=== PATIENT | female | born 1985 | race Two or more races ===

== ENCOUNTER 2022-01-31 23:50 | Emergency (ER) | payer SELFPAY ==
[~2022-01-31] VITALS: Ht 165.1 cm; Wt 81.6 kg
[2022-02-01 00:18] VITALS: BP 126/69
[2022-02-01 01:05] LABS: Urine Bacteria FEW /hpf (None Seen); Urine Blood 3+ /uL (Negative); Urine Specific Gravity 1.004 (1.001-1.035); Urine WBC 2 /hpf (0 - 5)
[2022-02-01 01:17] LABS: Amphetamine Screen, Urine NEGATIVE (NEGATIVE); Barbiturate Scree,Urine NEGATIVE (NEGATIVE); Benzodiazephine Screen, Urine NEGATIVE (NEGATIVE); Cannabinoid Screen, Urine NEGATIVE (NEGATIVE); Cocaine Screen, Urine NEGATIVE (NEGATIVE); Opiate Scree,Urine NEGATIVE (NEGATIVE); Phencyclidine Screen, Urine NEGATIVE (NEGATIVE)
== END 2022-02-01 02:13 | disposition left against medical advice (07) ==
LOC: ER 23:50
DX: S09.90XA Unspecified injury of head, initial encounter (principal); F10.129 Alcohol abuse with intoxication, unspecified; Y90.7 Blood alcohol level of 200-239 mg/100 ml; Z88.6 Allergy status to analgesic agent; Z53.29 Procedure and treatment not carried out because of patient's decision for other reasons
CPT/HCPCS: 36415; 80307; 80320; 81001; 84702

== ENCOUNTER 2025-05-15 15:59 | Emergency (ER) | payer BC, OTHER ==
[~2025-05-15] VITALS: Ht 149.9 cm; Wt 121.0 kg
[2025-05-15 16:00] VITALS: TEMP 97.9
--- NOTE | 2025-05-15 16:25 | ED.PDOC ---
History of Present Illness HPI Comments 39 y/o severely morbidly obese F, with a history of alcohol abuse, presents with significant other for c/c of nonradiating RUQ abdominal pain and abdominal distension and yellowing sclera for the past 2x months. Patient denies any history of fatty or cirrhotic liver. Denies any nausea, vomiting, diarrhea, or further associated symptoms. Patient was mildly tachycardic at arrival. Chief Complaint: Abdominal Pain Time Seen by MD: 16:15 Primary Care Provider: NONE Reviewed Notes: Nurses Notes, Medications, Allergies Allergies: Coded Allergies: Hydromorphone (Verified Allergy, Unknown, 02/01/22) Information Source: Patient Mode of Arrival: Ambulatory Severity: Moderate Timing: Months Duration: Intermittent Prehospital treatment: None Past Medical History PAST MEDICAL HISTORY: Denies Surgical History: Denies all surgeries STEP FINISHER History: Denies all STEP FINISHER Hx Family History Family History: Reviewed,noncontributory to illness Social History Smoker: Non-Smoker Alcohol: Heavy Drugs: Denies Drug Use Lives In: Home Constitutional: denies: chills, diaphoresis, fatigue, fever, malaise, sweats, weakness, others EENTM: reports: others (eye yellowing); denies: blurred vision, double vision, ear bleeding, ear discharge, ear drainage, ear pain, ear ringing, eye pain, eye redness, hearing loss, mouth pain, mouth swelling, nasal discharge, nose bleeding, nose congestion, nose pain, photophobia, tearing, throat pain, throat swelling, voice changes Respiratory: denies: cough, hemoptysis, orthopnea, SOB at rest, shortness of breath, SOB with excertion, stridor, wheezing, others Cardiovascular: denies: chest pain, dizzy spells, diaphoresis, Dyspnea on exertion, edema, irregular heart beat, left arm pain, lightheadedness, palpitations, PND, syncope, others Gastrointestinal: reports: abdomen distended, abdominal pain; denies: blood streaked bowels, constipated, diarrhea, dysphagia, difficulty swallowing, hematemesis, melena, nausea, poor appetite, poor fluid intake, rectal bleeding, rectal pain, vomiting, others Genitourinary: denies: abnormal vagina bleeding, burning, dyspareunia, dysuria, flank pain, frequency, hematuria, incontinence, pain, , vagina discharge, urgency, others Neurological: denies: dizziness, fainting, headache, left sided numbness, left sided weakness, numbness, paresthesia, pre-existing deficit, right sided numbness, right sided weakness, seizure, speech problems, tingling, tremors, weakness, others Musculoskeletal: denies: back pain, gout, joint pain, joint swelling, muscle pain, muscle stiffness, neck pain, others Integumetry: denies: bruises, change in color, change in hair/nails, dryness, laceration, lesions, lumps, rash, wounds, others Allergic/Immunocompromised: denies: Difficulty Healing, Frequent Infections, Hives, Itching, others Hematologic/Lymphatic: denies: anemia, blood clots, easy bleeding, easy bruising, swollen glands, others Endocrine: denies: excessive hunger, excessive sweating, excessive thirst, excessive urination, flushing, intolerance to cold, intolerance to heat, unexplained weight gain, unexplained weight loss, others Psychiatric: denies: anxiety, bipolar disorder, depression, hopeless, panic disorder, schizophrenia, sleepless, suicidal, others All Other Systems: Reviewed and Negative Physical Exam General Appearance: Moderate Distress ([id number] distress due to right upper quadrant pain concerns.), Normal HEENT: Normal ENT Inspection, Pharynx Normal, TMs Normal Neck: Full Range of Motion, Non-Tender, Normal, Normal Inspection Respiratory: Chest Non-Tender, Lungs Clear, No Accessory Muscle Use, No Respira tory Distress, Normal Breath Sounds Cardiovascular: No Edema, No JVD, No Murmur, No Gallop, Normal Peripheral Pulses, Regular Rate/Rhythm Breast Exam: Deferred Gastrointestinal: Other (Diffuse right upper quadrant tenderness to palpation throughout extending into the epigastric region. Difficult to assess due to bod y habitus. No pulsatile masses. No signs of trauma.) Genitalia: Deferred Pelvic: Deferred Rectal: Deferred Extremities: Normal inspection, Non-tender Neurologic: Alert Cerebellar Function: NOT DONE Reflexes: NOT DONE Skin: Dry, Normal Color, Warm Lymphatic: No Adenopathy Was a procedure done? Was a procedure done?: No Differential Dx Considerations may include: gastritis, gastroenteritis, GERD, fatty liver, liver cirrhosis, cholelithiasis, cholecystitis, UTI, nephrolithiasis, among, others X-Ray, Labs, Meds, VS Vital Signs Date Time Temp Pulse Resp B/P (MAP) Pulse Ox O2 Delivery O2 Flow Rate FiO2 05/15/25 18:03 73 22 97 Room Air* 0 21 05/15/25 18:03 72 22 133/76 (95) 98 05/15/25 16:00 97.9 103 18 138/97 97 97.9 Lab Test 05/15/25 17:26 05/15/25 16:35 05/15/25 16:24 Range/Units Troponin I High Sensitivity Pending < 3 L </=34 ng/L Urine Color Yellow Yellow Urine Clarity Clear Clear Urine pH 6.0 5.0-9.0 Urine Specific [place] 1.029 1.001-1.035 Urine Protein Negative Negative Urine Ketones Trace Negative Urine Blood Negative Negative /uL Urine Nitrite Negative Negative Urine Bilirubin Negative Negative Urine Urobilinogen Normal Negative mg/dL Urine Leukocyte Esterase Negative Negative /uL Urine RBC None seen 0 - 4 /hpf Urine Microscopic WBC < 1 0-5 /HPF Urine Squamous Epithelial Cells Few <5 /hpf Urine Bacteria None seen None Seen /hpf Urine Mucus Few None Seen Urine Glucose Normal Normal mg/dL Urine Test Negative Negative White Blood Count 5.2 4.4-10.8 10^3/uL Red Blood Count 4.55 4.0-5.20 10^6/uL Hemoglobin 11.2 L 12.2-16.2 g/dL Hematocrit 34.5 L 36.0-46.0 % Mean Corpuscular Volume 75.8 L 80.0-100.0 fL Mean Corpuscular Hemoglobin 24.6 L 28.0-32.0 pg Mean Corpuscular Hemoglobin Concent 32.5 32.0-36.0 g/dL Red Cell Distribution Width 18.0 H 11.8-14.3 % Platelet Count 254 140-450 10^3/uL Mean Platelet Volume 8.1 6.9-10.8 fL Neutrophils (%) (Auto) 55.4 37.0-80.0 % Lymphocytes (%) (Auto) 32.8 10.0-50.0 % Monocytes (%) (Auto) 7.3 0.0-12.0 % Eosinophils (%) (Auto) 3.5 0.0-7.0 % Basophils (%) (Auto) 1.0 0.0-2.0 % Neutrophils # (Auto) 2.9 1.6-8.6 10 ^3/uL Lymphocytes # (Auto) 1.7 0.4-5.4 10 ^3/uL Monocytes # (Auto) 0.4 0-1.3 10 ^3/uL Eosinophils # (Auto) 0.2 0-0.8 10 ^3/uL Basophils # (Auto) 0.1 0-0.2 10 ^3/uL Nucleated Red Blood Cells 0.1 % Sodium Level 143 136-145 mmol/L Potassium Level 4.1 3.5-5.1 mmol/L Chloride Level 109 H 98-107 mmol/L Carbon Dioxide Level 25 20-31 mmol/L Anion Gap 9 5-15 Blood Urea Nitrogen 18 9-23 mg/dL Creatinine 0.74 0.550-1.02 mg/dL Glomerular Filtration Rate Calc 105 >90 mL/min BUN/Creatinine Ratio 24.3 H 10.0-20.0 Serum Glucose 114 H 74-106 mg/dL Calcium Level 8.8 8.7-10.4 mg/dL Lipase 42 12-53 U/L X-Ray, Labs, Meds, VS Comment All studies performed in the ED were evaluated by me personally. Serum studies were remarkable for a mildly elevated lipase which is indicative of the patient's drinking history. CT study was remarkable for a hypoattenuation of the liver which appears to be related to hepatic steatosis. Spent time discussing alcohol cessation and lifestyle modification with the patient. Advised follow up with the primary care provider. Time of 1ST Reevaluation: 18:15 Reevaluation 1ST: Improved Consultation: PCP Patient Education/Counseling: Diagnosis, Treatment Family Education/Counseling: Diagnosis, Treatment, No Family Present SEPSIS Sepsis Screen Date sepsis recognized/suspect: May 15, 2025 Time Sepsis recognized/suspect: 1602 Recent Procedure: No On Antibiotic Therapy: No Respiratory Rate >20: No Heart Rate >90: No Temp<36 C (96.8 F) or >38.3 C: No SBP <90 or MAP <65 mmHG: No New Acute Mental Status Change: No Is the patient on CPAP, BIPAP,: No Physician Orders Troponin-I Hs (05/15/25 18:00) Troponin-I Hs (05/16/25 00:00) Troponin-I Hs (05/16/25 03:00) Ct Ab Pel With Iv Con Only (05/15/25 16:14) Heplock Iv (05/15/25 16:14) Electrocardigram (05/15/25 16:14) Troponin-I Hs (05/15/25 19:14) Morphine Sulfate Injection (05/15/25 18:15) Ondansetron Hcl (Zofran) (05/15/25 18:15) Vital Signs Date Time Temp Pulse Resp B/P (MAP) Pulse Ox O2 Delivery O2 Flow Rate FiO2 05/15/25 18:03 73 22 97 Room Air* 0 21 05/15/25 18:03 72 22 133/76 (95) 98 05/15/25 16:00 97.9 103 18 138/97 97 97.9 Laboratory Tests Test 05/15/25 16:24 White Blood Count 5.2 10^3/uL (4.4-10.8) Departure 1 Departure Time of Disposition: 18:15 Impression: Primary Impression: Fatty liver Disposition: HOME / SELF CARE / HOMELESS Condition: Stable Additional Instructions: Advised patient follow up with the primary care provider for discussions related to today's findings. Advised alcohol cessation immediately and additionally, advised patient to not utilize acetaminophen/Tylenol until her liver has returned to a healthy status. Discharged With: Self, Spouse Critical Care Note Critical Care Time?: No Stability Stability form required: No Heart Score Heart Score: Heart Score Response (Comments) Value History N/A 0 EKG N/A 0 Age N/A 0 Risk Factors N/A 0 Troponin N/A 0 Total 0 I personally scribed for STACY BE PAC ([email or web address]) on 05/15/25 at 16:25. Electronically submitted by Morales Ryan ([email or web address]). I personally scribed for STACY BE PAC ([email or web address]) on 05/15/25 at 16:29. Electronically submitted by Morales Ryan ([email or web address]). STACY BE PAC May 15, 2025 16:25
[2025-05-15 16:39] LABS: Hematocrit 34.5 % (36.0-46.0); Hemoglobin 11.2 g/dL (12.2-16.2); Mean Corpuscular Hemoglobin 24.6 pg (28.0-32.0); Mean Corpuscular Volume 75.8 fL (80.0-100.0); Nucleated Red Blood Cells % 0.1 %
[2025-05-15 16:47] LABS: Urine Protein, UAD Negative (Negative)
[2025-05-15 16:48] LABS: Potassium 4.1 mmol/L (3.5-5.1); Sodium 143 mmol/L (136-145)
[2025-05-15 16:49] LABS: Anion Gap 9 (5-15); Calcium 8.8 mg/dL (8.7-10.4); Carbon Dioxide 25 mmol/L (20-31)
[2025-05-15 16:51] LABS: Chloride 109 mmol/L (98-107)
[2025-05-15 16:54] LABS: BUN/Creatinine Ratio 24.3 (10.0-20.0); Blood Urea Nitrogen 18 mg/dL (9-23); Lipase 42 U/L (12-53)
[2025-05-15 16:55] LABS: Glucose 114 mg/dL (74-106)
[2025-05-15] MEDS: IOHEXOL 300 MG/ML 100ML BOTTLE IJ ONE (17:34)
--- NOTE | 2025-05-15 17:55 | DVH ---
EXAM: CT CT AB PEL WITH IV CON ONLY HISTORY: Diffuse epigastric and right quadrant pain TECHNIQUE: Volumetric multidetector CT images of the abdomen and pelvis were obtained after the admin istration of intravenous contrast. All CT scans at this facility use dose modulation, iterative recon struction, and/or weight based dosing when appropriate to reduce radiation dose to as low as reasonab ly achievable. COMPARISON: None FINDINGS: [LOWER CHEST]: Presumed atelectasis in the right lung base. [LIVER]: Question relative hypoattenuation of the liver which may be exaggerated secondary to timing of contrast. Differential also includes hepatitis the versus sequelae of hepatic steatosis. [GALLBLADDER AND BILIARY TREE]: Surgically absent. [SPLEEN]: Unremarkable. [PANCREAS]: Unremarkable. [ADRENAL GLANDS]: Unremarkable [KIDNEYS]: No hydronephrosis. No nephroureterolithiasis. [BLADDER]: Unremarkable for the degree distention. [REPRODUCTIVE ORGANS]: Unremarkable. [BOWEL/MESENTERY]: Postsurgical changes of the stomach. Minimal sigmoid diverticulosis. [ASCITES]: Absent [LYMPHADENOPATHY]: No pathologically enlarged lymph nodes by CT size criteria [VASCULATURE]: No aneurysmal dilatation. [ABDOMINAL WALL]: Unremarkable. [MUSCULOSKELETAL]: No acute fracture or aggressive focal osseous lesion. IMPRESSION: 1. No definitive CT evidence of an acute abdominal/pelvic process. Question relative hypoattenuation of the liver which may be exaggerated secondary to timing of contrast. Differential also includes he patitis the versus sequelae of hepatic steatosis.
[2025-05-15] MEDS ORDERED: MORPHINE SULFATE INJ 2 MG/ml SYRG IM ONE (18:00)
[2025-05-15] MEDS ORDERED: ONDANSETRON ODT 4 MG TAB PO ONE (18:00)
[2025-05-15 18:03] VITALS: PULSE 73; RESP 22; O2SAT 97
[2025-05-15] MEDS: MORPHINE SULFATE INJ 2 MG/ml SYRG IV ONE (18:38)
[2025-05-15] MEDS: ONDANSETRON HCL 4 MG/2 ML VIAL IV ONE (18:38)
[2025-05-15] MEDS: HYDROmorphone HCL 2 MG/ML VL/or syr IM ONE (18:39)
[2025-05-15 19:03] VITALS: BP 126/75; PULSE 64; RESP 15; O2SAT 98
== END 2025-05-15 18:17 | disposition home or self-care (01) ==
LOC: ER 15:59
DX: K76.0 Fatty (change of) liver, not elsewhere classified (principal); Z88.5 Allergy status to narcotic agent; Z79.899 Other long term (current) drug therapy
CPT/HCPCS: 36415; 74177; 80048; 81001; 81025; 83690; 84484; 85025; 96374; 96375; 99285; J2270; J2405; Q9967